=== PATIENT | female | born 1985 | race African-American/Black ===

== ENCOUNTER 2019-04-25 06:38 | Emergency (ER) | payer MEDICAID ==
[~2019-04-25] VITALS: Ht 160 cm; Wt 68.2 kg
[2019-04-25] MEDS ORDERED: AMOX500C2 PO (07:04)
[2019-04-25] MEDS ORDERED: amoxicillin 250mg capsule PO ONE (07:05)
[2019-04-25] MEDS ORDERED: acetaminophen 325mg tablet PO ONE (07:05)
[2019-04-25] MEDS ORDERED: ondansetron 4mg rapidly disintigrating tab PO ONE (07:05)
[2019-04-25 07:15] VITALS: BP 97/49
== END 2019-04-25 07:40 | disposition home or self-care (01) ==
LOC: ER 06:40
DX: K13.79 Other lesions of oral mucosa (principal); R68.84 Jaw pain; K05.10 Chronic gingivitis, plaque induced; J45.909 Unspecified asthma, uncomplicated; F12.90 Cannabis use, unspecified, uncomplicated; Z86.14 Personal history of Methicillin resistant Staphylococcus aureus infection; Z88.6 Allergy status to analgesic agent; Z79.899 Other long term (current) drug therapy
CPT/HCPCS: 99284; J2405

== ENCOUNTER 2021-03-01 13:17 | Emergency (ER) | payer MEDICAID, OTHER ==
[~2021-03-01] VITALS: Ht 160 cm; Wt 72.7 kg
[2021-03-01 18:08] LABS: BASOPHILS # (AUTO) 0.1 X10'3 (0-0.2); BASOPHILS % (AUTO) 0.5 % (0-1); EOSINOPHILS # (AUTO) 0.1 X10'3 (0-0.9); EOSINOPHILS % (AUTO) 0.7 % (0-6); HEMATOCRIT 36.3 % (35.0-45.0); HEMOGLOBIN 12.1 g/dl (12.0-16.0); LYMPHOCYTES # (AUTO) 2.6 X10'3 (1.1-4.8); LYMPHOCYTES % (AUTO) 18.8 % (21-51); MEAN CORPUSCULAR HEMOGLOBIN 28.4 PG (27.0-31.0); MEAN CORPUSCULAR HGB CONC 33.3 g/dL (33.0-36.5); MEAN CORPUSCULAR VOLUME 85.2 FL (78-98); MEAN PLATELET VOLUME 7.2 FL (7.4-10.4); MONOCYTES # (AUTO) 1.6 X10'3 (0-0.9); MONOCYTES % (AUTO) 11.4 % (2-12); NEUTROPHILS # (AUTO) 9.6 X10'3 (1.8-7.7); NEUTROPHILS % (AUTO) 68.6 % (42-75); PLATELET COUNT 381 X10'3 (140-440); RED BLOOD COUNT 4.26 X10'6 (4.20-5.60); RED CELL DISTRIBUTION WIDTH 16.5 % (11.5-14.5)
[2021-03-01 18:14] LABS: ALANINE AMINOTRANSFERASE 22 U/L (12-78); ALBUMIN 3.5 G/DL (3.4-5.0); ALBUMIN/GLOBULIN RATIO 0.9 (1.1-1.5); ALKALINE PHOSPHATASE 69 IU/L (46-116); ANION GAP 7 (8-16); ASPARTATE AMINO TRANSFERASE 11 U/L (10-37); BILIRUBIN,TOTAL 0.5 MG/DL (0.1-1.0); BLOOD UREA NITROGEN 6 MG/DL (7-18); BUN/CREATININE RATIO 9.1 (6.6-38.0); CALCIUM 8.8 MG/DL (8.5-10.1); CHLORIDE 101 MMOL/L (99-107); CREATININE 0.66 MG/DL (0.40-0.90); GLUCOSE 97 MG/DL (70-104); LIPASE 129 U/L (73-393); POTASSIUM 3.9 MMOL/L (3.5-5.1); SODIUM 137 MMOL/L (135-145); TOTAL CARBON DIOXIDE 28.9 MMOL/L (24-32); TOTAL PROTEIN 7.6 G/DL (6.4-8.2); eGFR > 90 ML/MIN
[2021-03-01] MEDS ORDERED: ondansetron/PF 4mg/2ml inj IV ONE (19:45)
[2021-03-01] MEDS ORDERED: normal saline 1000ML IV soln IVB ONE (19:45)
[2021-03-01] MEDS ORDERED: morphine 4 MG/ML inj SYRINge IV ONE (19:50)
[2021-03-01] MEDS ORDERED: iohexol 300mg/ml 100ml inj. ONE (19:52)
[2021-03-01 20:46] LABS: URINE HCG NEGATIVE (NEG)
[2021-03-01 20:52] LABS: CLARITY,URINE SLIGHTLY CLOUDY (Clear); COLOR,URINE YELLOW (Yellow); GLUCOSE, URINE NEGATIVE (Neg); KETONES,URINE NEGATIVE (Neg); LEUKOCYTE ESTERASE ,URINE TRACE (Neg); NITRITES, URINE POSITIVE (Neg); OCCULT BLOOD,URINE SMALL (Neg); PROTEIN,URINE NEGATIVE (Neg); UROBILINOGEN,URINE 0.2 E.U/dL (0.2-1.0)
[2021-03-01 20:58] LABS: UA COLLECTION TYPE CLN CATCH MIDSTREAM
[2021-03-01 21:00] LABS: BACTERIA,URINE 4+ /HPF (Neg); MUCUS STRANDS MANY /LPF (Neg); RBC,URINE 0-2 /HPF (0-2); SQUAMOUS EPITHELIAL CELL,UR MODERATE /LPF (FEW); TRICHOMONAS,URINE FEW /HPF (NEGATIVE)
[2021-03-01 21:01] LABS: WBC CLUMPS,URINE FEW /HPF (NEGATIVE)
[2021-03-01] MEDS ORDERED: CefTRIAXone 2gm/D5W 50ml BAG 50 ML IV ONE (21:10)
[2021-03-01] MEDS ORDERED: HYDR-3965 PO (21:13)
[2021-03-01] MEDS ORDERED: CEPH250T PO (21:13)
[2021-03-01] MEDS ORDERED: ONDA4TAB6 PO (21:13)
[2021-03-01 22:02] VITALS: BP 116/65
== END 2021-03-01 21:58 | disposition home or self-care (01) ==
LOC: ER 13:17
DX: N12 Tubulo-interstitial nephritis, not specified as acute or chronic (principal); R11.0 Nausea; R10.84 Generalized abdominal pain; J45.909 Unspecified asthma, uncomplicated; F12.90 Cannabis use, unspecified, uncomplicated; Z86.14 Personal history of Methicillin resistant Staphylococcus aureus infection; Z72.89 Other problems related to lifestyle; Z88.6 Allergy status to analgesic agent; Z79.2 Long term (current) use of antibiotics; Z79.899 Other long term (current) drug therapy
CPT/HCPCS: 36415; 74177; 80053; 81001; 81025; 83690; 85025; 87077; 87088; 87186; 96361; 96365; 96375; 99285; J0696; J2270; J2405; J7030; Q9967

== ENCOUNTER 2021-04-12 21:35 | Emergency (ER) | payer SELFPAY ==
[~2021-04-12 21:35] MED LIST: ONDA4TAB6 PO
== END 2021-04-12 22:41 | disposition left against medical advice (07) ==
LOC: ER 21:36
DX: R22.9 Localized swelling, mass and lump, unspecified (principal); Z53.21 Procedure and treatment not carried out due to patient leaving prior to being seen by health care provider

== ENCOUNTER 2021-07-24 13:30 | Inpatient (IN) | payer OTHER ==
[~2021-07-24] VITALS: Ht 160 cm; Wt 72.0 kg
[2021-07-24 14:42] LABS: BASOPHILS # (AUTO) 0.2 X10'3 (0-0.2); EOSINOPHILS # (AUTO) 0.1 X10'3 (0-0.9); EOSINOPHILS % (AUTO) 0.3 % (0-6); HEMATOCRIT 36.7 % (35.0-45.0); HEMOGLOBIN 12.2 g/dl (12.0-16.0); LYMPHOCYTES # (AUTO) 2.6 X10'3 (1.1-4.8); LYMPHOCYTES % (AUTO) 13.1 % (21-51); MEAN CORPUSCULAR HEMOGLOBIN 27.6 PG (27.0-31.0); MEAN CORPUSCULAR HGB CONC 33.1 g/dL (33.0-36.5); MEAN CORPUSCULAR VOLUME 83.4 FL (78-98); MEAN PLATELET VOLUME 6.6 FL (7.4-10.4); MONOCYTES # (AUTO) 1.7 X10'3 (0-0.9); MONOCYTES % (AUTO) 8.6 % (2-12); NEUTROPHILS # (AUTO) 15.3 X10'3 (1.8-7.7); PLATELET COUNT 516 X10'3 (140-440); RED CELL DISTRIBUTION WIDTH 15.6 % (11.5-14.5); WHITE BLOOD COUNT 19.9 X10'3 (4.5-11.0)
[2021-07-24 14:51] LABS: URINE HCG NEGATIVE (NEG)
[2021-07-24 15:00] LABS: ALANINE AMINOTRANSFERASE 31 U/L (12-78); ALBUMIN 3.9 G/DL (3.4-5.0); ALBUMIN/GLOBULIN RATIO 0.8 (1.1-1.5); ALKALINE PHOSPHATASE 77 IU/L (46-116); ANION GAP 16 (8-16); ASPARTATE AMINO TRANSFERASE 18 U/L (10-37); BILIRUBIN,TOTAL 0.8 MG/DL (0.1-1.0); BLOOD UREA NITROGEN 8 MG/DL (7-18); BUN/CREATININE RATIO 10.5 (6.6-38.0); CALCIUM 9.4 MG/DL (8.5-10.1); CHLORIDE 98 MMOL/L (99-107); CREATININE 0.76 MG/DL (0.40-0.90); GLUCOSE 93 MG/DL (70-104); POTASSIUM 3.3 MMOL/L (3.5-5.1); SODIUM 136 MMOL/L (135-145); TOTAL CARBON DIOXIDE 21.7 MMOL/L (24-32); TOTAL PROTEIN 8.9 G/DL (6.4-8.2); eGFR > 90 ML/MIN
[2021-07-24] MEDS ORDERED: normal saline 1000ML IV soln IV ONE (18:40)
[2021-07-24] MEDS ORDERED: CefTRIAXone 2gm/D5W 50ml BAG 50 ML IV ONE (18:40)
[2021-07-24] MEDS ORDERED: morphine 4 MG/ML inj SYRINge IV ONE ×2 (18:50→21:55)
[2021-07-24] MEDS ORDERED: ondansetron/PF 4mg/2ml inj IV ONE (18:50)
[2021-07-24] MEDS: normal saline 1000ml 1,000 ML IV SCH (20:00)
[2021-07-24 20:22] LABS: CLARITY,URINE SLIGHTLY CLOUDY (Clear); COLOR,URINE YELLOW (Yellow); GLUCOSE, URINE NEGATIVE (Neg); KETONES,URINE TRACE mg/dl (Neg); LEUKOCYTE ESTERASE ,URINE NEGATIVE (Neg); NITRITES, URINE POSITIVE (Neg); OCCULT BLOOD,URINE NEGATIVE (Neg); PROTEIN,URINE NEGATIVE (Neg); UA COLLECTION TYPE CLN CATCH MIDSTREAM; UROBILINOGEN,URINE 0.2 E.U/dL (0.2-1.0)
[2021-07-24 20:27] LABS: MUCUS STRANDS MODERATE /LPF (Neg); SQUAMOUS EPITHELIAL CELL,UR MODERATE /LPF (FEW)
[2021-07-24 20:28] LABS: RENAL CELLS, URINE FEW /HPF
[2021-07-24 20:29] LABS: BACTERIA,URINE 2+ /HPF (Neg)
[2021-07-24 20:30] LABS: WBC,URINE 20-30 /HPF (0-4)
[2021-07-24 20:31] LABS: WBC CLUMPS,URINE FEW /HPF (NEGATIVE)
[2021-07-24] MEDS ORDERED: temazepam 15mg capsule PO PRN (21:00)
[2021-07-24] MEDS ORDERED: ondansetron 4mg rapidly disintigrating tab PO ONE (21:55)
[2021-07-24] MEDS ORDERED: magnesium hydroxide 30ml (MOM) UD suspension PO PRN (22:10)
[2021-07-24] MEDS ORDERED: potassium Cl 40MEQ/1/2NS 520ml 520 ML IV PRN ×2 (22:10)
[2021-07-24] MEDS ORDERED: diphenhydrAMINE 25mg capsule PO PRN (22:10)
[2021-07-24] MEDS ORDERED: potassium Cl 20 mEq SR tablet PO PRN ×2 (22:10)
[2021-07-24] MEDS ORDERED: mag hydrox/Alum hydrox/simeth 30ml oral suspension PO PRN (22:10)
[2021-07-24] MEDS ORDERED: bisacodyl 10mg suppository rectal RC PRN (22:10)
[2021-07-24] MEDS ORDERED: diphenhydrAMINE 50 mg/ml inj IV PRN (22:10)
[2021-07-24] MEDS ORDERED: ondansetron/PF 4mg/2ml inj IV PRN (22:10)
[2021-07-24] MEDS ORDERED: HYDROcodone/acetaminophen 5mg/325mg tablet PO PRN (22:10)
[2021-07-24] MEDS ORDERED: acetaminophen 325mg tablet PO PRN (22:10)
[2021-07-24] MEDS ORDERED: morphine 2 MG/ML inj. syringe IV PRN ×2 (22:10)
[2021-07-24] MEDS ORDERED: HYDROmorphone inj. 0.5 MG/0.5 ML DISP.SYRIN IV PRN (22:10)
[2021-07-24] MEDS ORDERED: acetaminophen 650mg rectal suppository RC PRN (22:10)
[2021-07-24] MEDS ORDERED: ondansetron 4mg rapidly disintigrating tab PO PRN (22:10)
[2021-07-24 22:49] LABS: HEMOGLOBIN A1C 5.2 % (4.5-6.2)
[2021-07-24 22:55] LABS: URINE AMPHETAMINE SCREEN POSITIVE (Neg); URINE BARBITUATE SCREEN NEGATIVE (Neg); URINE BENZODIAZEPINES SCREEN NEGATIVE (Neg); URINE CANNABINOID SCREEN POSITIVE (Neg); URINE COCAINE SCREEN NEGATIVE (Neg); URINE METHADONE SCREEN NEGATIVE (Neg); URINE OPIATE SCREEN POSITIVE (Neg); URINE PHENCYCLIDINE SCREEN NEGATIVE (Neg)
[2021-07-24 22:58] LABS: CREATINE KINASE 93 U/L (26-192); LIPASE 148 U/L (73-393); MAGNESIUM 1.7 MG/DL (1.5-2.4); PHOSPHORUS 2.3 MG/DL (2.3-4.5)
[2021-07-24 23:01] LABS: PARTIAL THROMBOPLASTIN TIME 34 SECONDS (22-32)
[2021-07-25] MEDS ORDERED: NO HOME MEDS PO (00:38)
--- NOTE | 2021-07-25 01:56 | NUR ---
pt was requesting to leave AMA. nurse notified MD devries. pt was educated on risks of leaving hospital ama and pt agreed to stay until further w/u and rx was provided.
[2021-07-25 02:33] LABS: BASOPHILS # (AUTO) 0.1 X10'3 (0-0.2); BASOPHILS % (AUTO) 0.4 % (0-1); EOSINOPHILS # (AUTO) 0.1 X10'3 (0-0.9); EOSINOPHILS % (AUTO) 0.7 % (0-6); HEMATOCRIT 33.2 % (35.0-45.0); HEMOGLOBIN 11.2 g/dl (12.0-16.0); LYMPHOCYTES # (AUTO) 2.4 X10'3 (1.1-4.8); LYMPHOCYTES % (AUTO) 16.2 % (21-51); MEAN CORPUSCULAR HEMOGLOBIN 28.3 PG (27.0-31.0); MEAN CORPUSCULAR HGB CONC 33.7 g/dL (33.0-36.5); MEAN CORPUSCULAR VOLUME 83.7 FL (78-98); MEAN PLATELET VOLUME 6.7 FL (7.4-10.4); MONOCYTES # (AUTO) 1.7 X10'3 (0-0.9); MONOCYTES % (AUTO) 11.3 % (2-12); NEUTROPHILS # (AUTO) 10.5 X10'3 (1.8-7.7); NEUTROPHILS % (AUTO) 71.4 % (42-75); PLATELET COUNT 427 X10'3 (140-440); RED BLOOD COUNT 3.97 X10'6 (4.20-5.60); RED CELL DISTRIBUTION WIDTH 15.8 % (11.5-14.5); WHITE BLOOD COUNT 14.7 X10'3 (4.5-11.0)
[2021-07-25 02:49] LABS: ALANINE AMINOTRANSFERASE 23 U/L (12-78); ALBUMIN/GLOBULIN RATIO 0.7 (1.1-1.5); ALKALINE PHOSPHATASE 71 IU/L (46-116); ANION GAP 9 (8-16); ASPARTATE AMINO TRANSFERASE 15 U/L (10-37); BILIRUBIN,TOTAL 0.4 MG/DL (0.1-1.0); BLOOD UREA NITROGEN 9 MG/DL (7-18); CALCIUM 8.6 MG/DL (8.5-10.1); CHLORIDE 104 MMOL/L (99-107); CHOLESTEROL 145 MG/DL (0-200); CREATININE 0.82 MG/DL (0.40-0.90); GLUCOSE 93 MG/DL (70-104); HDL CHOLESTEROL 48 MG/DL (35-60); LDL CHOLESTEROL 81 MG/DL (50-100); POTASSIUM 3.5 MMOL/L (3.5-5.1); SODIUM 138 MMOL/L (135-145); TOTAL CARBON DIOXIDE 25.5 MMOL/L (24-32); TOTAL PROTEIN 7.3 G/DL (6.4-8.2); TRIGLYCERIDES 47 MG/DL (20-135); eGFR > 90 ML/MIN
[2021-07-25 02:50] VITALS: BP 112/69
[2021-07-25] MEDS: normal saline 1000ml 1,000 ML IV SCH ×2 (02:53→18:10)
--- NOTE | 2021-07-25 06:00 | NUR ---
Patient in room [facility]. I have received report from JONNY Mcghee and had the opportunity to ask questions and assume patient care.
--- NOTE | 2021-07-25 06:19 | NUR ---
Student documentation: I have reviewed and agree with all interventions, assessments performed and documented by Addendum: 07/25/21 at 0619 by Johnny Escalera RN Amended: Links added.
--- NOTE | 2021-07-25 06:25 | NUR ---
Patient in room [facility]. I have received report from Xenia FULLER and had the opportunity to ask questions and assume patient care.
--- NOTE | 2021-07-25 06:31 | NUR ---
Problems reprioritized. Patient report given, questions answered & plan of care reviewed with Judie FULLER.
[2021-07-25 07:00] VITALS: BP 106/52
[2021-07-25] MEDS: heparin, porcine 5000 units/ml vial SQ SCH ×2 (07:43→19:44)
[2021-07-25] MEDS: pantoprazole 40mg Tablet.DR PO SCH (07:44)
[2021-07-25] MEDS: docusate sod 100mg capsule PO SCH ×2 (07:44→19:42)
[2021-07-25] MEDS: CefTRIAXone/D5W-Rocephin 1gm 50 ML IV SCH (07:57)
[2021-07-25] MEDS: HYDROcodone/acetaminophen 10/325mg tab PO PRN ×2 (07:57→19:43)
[2021-07-25] MEDS: K and/or MAG REPLACEMENT MC SCH ×2 (08:00→20:00)
--- NOTE | 2021-07-25 08:00 | NUR ---
Student documentation: I have reviewed and agree with all interventions, assessments performed and documented by Leticia Melo [place] Student.
--- NOTE | 2021-07-25 18:19 | NUR ---
Problems reprioritized. Patient report given, questions answered & plan of care reviewed with JONNY Ferguson.
--- NOTE | 2021-07-25 18:19 | NUR ---
Problems reprioritized. Patient report given, questions answered & plan of care reviewed with te FULLER.
[2021-07-25] MEDS: lactobacillus rhamnosus 10,000 MMU CELLS/CAPSULE PO SCH (19:42)
[2021-07-25 20:00] VITALS: BP 101/65
--- NOTE | 2021-07-25 22:53 | NUR ---
Student documentation: I have reviewed interventions, assessments performed and documented by Dale JACK [facility], [place].
[2021-07-25 23:09] VITALS: BP 98/55
[2021-07-26] MEDS: HYDROcodone/acetaminophen 10/325mg tab PO PRN (04:34)
[2021-07-26] MEDS: normal saline 1000ml 1,000 ML IV SCH (04:43)
--- NOTE | 2021-07-26 06:25 | NUR ---
Patient in room [facility]. I have received report from Phyllis FULLER and had the opportunity to ask questions and assume patient care.
--- NOTE | 2021-07-26 06:38 | NUR ---
Problems reprioritized. Patient report given, questions answered & plan of care reviewed with JONNY Dimas.
[2021-07-26 07:00] VITALS: BP 114/71
[2021-07-26 07:00] LABS: ALANINE AMINOTRANSFERASE 28 U/L (12-78); ALBUMIN/GLOBULIN RATIO 0.7 (1.1-1.5); ALKALINE PHOSPHATASE 68 IU/L (46-116); ANION GAP 12 (8-16); ASPARTATE AMINO TRANSFERASE 17 U/L (10-37); BILIRUBIN,TOTAL 0.3 MG/DL (0.1-1.0); BLOOD UREA NITROGEN 6 MG/DL (7-18); BUN/CREATININE RATIO 10.5 (6.6-38.0); CALCIUM 8.8 MG/DL (8.5-10.1); CHLORIDE 102 MMOL/L (99-107); CREATININE 0.57 MG/DL (0.40-0.90); GLUCOSE 94 MG/DL (70-104); POTASSIUM 3.9 MMOL/L (3.5-5.1); SODIUM 136 MMOL/L (135-145); TOTAL CARBON DIOXIDE 22.5 MMOL/L (24-32); TOTAL PROTEIN 7.4 G/DL (6.4-8.2); eGFR > 90 ML/MIN
[2021-07-26 07:11] LABS: BASOPHILS # (AUTO) 0.1 X10'3 (0-0.2); BASOPHILS % (AUTO) 0.6 % (0-1); EOSINOPHILS # (AUTO) 0.1 X10'3 (0-0.9); EOSINOPHILS % (AUTO) 0.9 % (0-6); HEMOGLOBIN 11.1 g/dl (12.0-16.0); LYMPHOCYTES # (AUTO) 1.9 X10'3 (1.1-4.8); LYMPHOCYTES % (AUTO) 22.1 % (21-51); MEAN CORPUSCULAR HEMOGLOBIN 28.2 PG (27.0-31.0); MEAN CORPUSCULAR HGB CONC 33.5 g/dL (33.0-36.5); MEAN CORPUSCULAR VOLUME 84.1 FL (78-98); MEAN PLATELET VOLUME 7.4 FL (7.4-10.4); MONOCYTES # (AUTO) 0.7 X10'3 (0-0.9); MONOCYTES % (AUTO) 7.9 % (2-12); NEUTROPHILS # (AUTO) 5.9 X10'3 (1.8-7.7); NEUTROPHILS % (AUTO) 68.5 % (42-75); PLATELET COUNT 445 X10'3 (140-440); RED BLOOD COUNT 3.92 X10'6 (4.20-5.60); RED CELL DISTRIBUTION WIDTH 15.6 % (11.5-14.5); WHITE BLOOD COUNT 8.7 X10'3 (4.5-11.0)
[2021-07-26] MEDS: pantoprazole 40mg Tablet.DR PO SCH (07:17)
[2021-07-26] MEDS: docusate sod 100mg capsule PO SCH (07:19)
[2021-07-26] MEDS: lactobacillus rhamnosus 10,000 MMU CELLS/CAPSULE PO SCH (07:20)
[2021-07-26] MEDS: CefTRIAXone/D5W-Rocephin 1gm 50 ML IV SCH (07:23)
[2021-07-26] MEDS: heparin, porcine 5000 units/ml vial SQ SCH (07:25)
[2021-07-26] MEDS: K and/or MAG REPLACEMENT MC SCH (08:00)
[2021-07-26] MEDS ORDERED: LEVO500T90 PO (09:26)
--- NOTE | 2021-07-26 10:30 | NUR ---
Pt is A & O x4, in no apparent distress. pt is DC to home with family. Pt verbalizes understanding of ALL Dc orders. pt knows the importance of following up with PCP/Urologist within 1 week. Pt given antibiotics and able to teach back she needs to finish ALL antibiotics. Iv cath was removed, intact. pt packed all her belongings and was wheeled to the front where family picked her up.
== END 2021-07-26 10:31 | disposition home or self-care (01) | DRG 690 ==
LOC: ER 13:31 → ED HOLD 22:15 → EDBEDREQ 07-25 02:16 → SUR 3N 07-25 02:36
PROVIDERS: ADMIT Family Medicine; ATTEND Internal Medicine
DX: N10 Acute pyelonephritis (principal); E87.2 Acidosis; E86.1 Hypovolemia; E87.6 Hypokalemia; F15.129 Other stimulant abuse with intoxication, unspecified; J45.909 Unspecified asthma, uncomplicated; K59.00 Constipation, unspecified; N20.0 Calculus of kidney; F12.10 Cannabis abuse, uncomplicated; R82.4 Acetonuria; Z87.442 Personal history of urinary calculi; Z88.5 Allergy status to narcotic agent; Z71.51 Drug abuse counseling and surveillance of drug abuser
CPT/HCPCS: 36415; 74176; 76770; 76856; 80053; 80061; 80305; 81001; 81025; 82550; 83036; 83605; 83690; 83735; 83880; 84100; 84145; 84443; 85025; 85610; 85730; 87040; 87081; 87088; 93976; 96365; 96375; 99285; G0378; J0696; J1170; J1644; J2270; J2405; J7030